=== PATIENT | female | born 1990 | race African-American/Black ===

== ENCOUNTER 2017-02-25 20:25 | Inpatient (IN) ==
[2017-02-25] MEDS ORDERED: LACTATED RINGERS 1,000 ML IV SCH (22:00)
--- NOTE | 2017-02-25 23:20 | Ultrasound Report ---
US OB biophys profile Indication: . Decreased movement. Biophysical profile ultrasound: Single fetus is vertex. Anterior placenta without previa, slightly heterogeneous appearing. MARY JO 165 mm, heart rate 152 BPM. breathing, gross body movements and tone are within normal limits. Impression: 06/25 biophysical profile score. Aged placenta. PROCEDURE INTERPRETED AT [facility] DEPARTMENT OF RADIOLOGY Final Report Signed by: Bright Worley M.D.
[2017-02-26 00:56] LABS: Basophils % 0.1 % (0.0-0.8); Hematocrit 34.8 VOL% (35.7-47.0); Hemoglobin 10.7 GM/DL (12.0-16.0); Immature Granulocytes % 1.4 %; Immature Granulocytes Absolute 0.16 #; Lymphocytes # 1.3 10*3/uL (1.4-4.0); Lymphocytes % 10.7 % (21.3-54.2); Mean Corpuscular HGB Conc 30.7 GM/DL (32-36); Mean Corpuscular Hemoglobin 26 PG (27-34); Mean Corpuscular Volume 85.5 FL (87-102); Monocytes # 0.7 10*3/uL (0.11-0.8); Monocytes % 5.8 % (1.7-12.7); NRBC # 0.03 10*3/uL; Neutrophils # 9.5 10*3/uL (1.4-7.4); Platelet Count 243 T/CUMM (130-400); Red Blood Count 4.07 MC/CUMM (3.8-5.5); Red Cell Distribution Width 17.5 % (9.3-17.3); White Blood Count 11.6 T/CUMM (4-12)
[2017-02-26 01:19] LABS: Albumin 2.4 G/DL (3.4-5.0); Bilirubin,Total 0.4 MG/DL (0.2-1.0); Calcium 8.4 MG/DL (8.5-10.1); Osmolality,Calculated 283.3 MOS/KG (273-304); Potassium 4.3 MMOL/L (3.5-5.1); Total Protein 5.7 G/DL (6.4-8.3)
[2017-02-26] MEDS: LACTATED RINGERS 1,000 ML IV SCH ×3 (02:40→21:00)
[2017-02-26] MEDS ORDERED: FAMOTIDINE 20 MG/2 ML VIAL IV ONE (06:00)
[2017-02-26] MEDS ORDERED: CITRIC ACID/SODIUM CITRATE 30 ML UDCUP PO ONE (06:00)
[2017-02-26] MEDS ORDERED: ceFAZolin 2,000 MG in PREMIX 1 EACH IV ONE (08:00)
[2017-02-26] MEDS ORDERED: OXYTOCIN/LR 30 UNIT/1,000 ML BAG IV ONE (08:05)
[2017-02-26] MEDS ORDERED: OXYTOCIN 10 UNIT/ML VIAL ONE (08:51)
[2017-02-26] MEDS ORDERED: ONDANSETRON 4 MG/2 ML VIAL ONE (09:11)
[2017-02-26] MEDS ORDERED: MIDAZOLAM 2 MG/2 ML VIAL ONE (10:13)
[2017-02-26] MEDS ORDERED: MORPHINE 10 MG/10 ML VIAL ONE (10:13)
--- NOTE | 2017-02-26 10:22 | OB/GYN History & Physical ---
History of Present Illness Chief complaint: Nonreactive NST, at 37+ weeks History of present illness: Ms. Rouse is a 26 year old female 26-year-old 1 para 0 EDC is 429 1737+ weeks gestation. Patient's was complicated by a twin gestation where this patient lost 1 of the twins in the first trimester. She presented this time with decreased movement. The NST was nonreactive. Biophysical profile demonstrated 8 out of 8 however there was significant calcification of the placenta. In light of these findings this patient is prepared for a primary section risks and benefits were thoroughly discussed she is in full agreement. heart tones demonstrated absent acceleration. But a consistent heartbeat of approximately 140s-150. The risks and benefits were discussed with this patient , also discussed with the nursery Home Medications Medication Instructions Recorded Confirmed Type Folic Acid 1 tablet PO DAILY 02/26/17 02/26/17 History No122/Iron/Folic Acid 1 tablet PO DAILY 02/26/17 02/26/17 History [ Multi Tablet] predniSONE TAB [PredniSONE] 1 tablet PO DAILY 02/26/17 02/26/17 History Allergies Allergy/AdvReac Type Severity Reaction Status Date / Time No Known Allergies Allergy Unverified 07/07/16 20:19 Medical,Surgical,& Family Hx - Medical History Neurology: No history of: Seizures HEENT: History of: Eye Problem (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") Reproductive: No history of: Ectopic , Complication - Surgical History Reproductive Surgeries: Patient denies;: Section - Family History Family History: Reports;: Family Anesthesia Reaction (sister from being over sedated), Family Diabetes (mgm), Family Hypertension (mgm) Denies;: Family Cancer, Family Heart Disease, Family Hematology, Family Psychiatric Problems, Family Stroke, Additional Family History - Social History Smoking Status: Never smoker Frequency of Alcohol Use: None Type of Drug Use: None 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 Temp Pulse Resp BP 02/26/17 04:00 97.8 F 81 18 132/70 02/26/17 00:30 98.4 F 96 H 18 124/66 General appearance: no acute distress - Antepartum / Post Antepartum Exam Cervix -Dilatation: Thick and closed - Head Head exam: Present: normal inspection - Eye Eye exam: Present: EOMI Pupils: Present: YONIS - ENT ENT exam: Present: normal exam - Neck Neck exam: Present: normal inspection - Respiratory Respiratory exam: Present: clear to auscultation bilaterally - Breast Breasts: as per HPI Menstruation: as per HPI - Cardiovascular Cardiovascular exam: Present: regular rate and rhythm - GI/Abdominal GI/Abdominal exam: Present: normal bowel sounds - Extremities Exam Extremities exam: Present: normal inspection - Back Exam Back exam: Present: normal inspection - Neurological Exam Neurological exam: Present: alert, oriented X3 - Psychiatric Psychiatric exam: Present: normal affect - Skin Skin exam: Present: normal color Assessment and Plan (1) Non-reactive NST (non-stress test) Status: Acute Assessment and plan: 37+ weeks gestation with a nonreactive NST, aging placenta, and a first trimester twin loss with this particular . Current Visit: Yes Results - Labs CBC & BMP: 02/26/17 00:42 02/26/17 00:42
[2017-02-26] MEDS ORDERED: RHO(D) IMMUNE GLOBULIN 300 MCG SYRINGE IM ONE (10:26)
[2017-02-26] MEDS ORDERED: ONDANSETRON 4 MG/2 ML VIAL IV PRN (10:26)
[2017-02-26] MEDS ORDERED: OXYTOCIN/LR 20 UNIT/1,000 ML BAG IV ONE (10:26)
[2017-02-26] MEDS ORDERED: ACETAMINOPHEN 325 MG TABLET PO PRN (10:26)
--- NOTE | 2017-02-26 10:26 | Operative Note ---
Date of procedure: 02/26/17 Procedure: Preoperative diagnosis: Nonreactive NST, 37+ weeks gestation Postoperative diagnosis: Same Anesthesia:[] Regional anesthesia Estimated blood loss: [] 300 cc Surgeon: Dr. Long Findings: [] Male infant born at 9:38 AM, Apgars were 6 at 1 minute 8 at 5 minutes, weight was 5 lbs. 15 oz., thick tenacious meconium staining Complications: None Procedure: Low transverse section The patient was taken to the operating suite heart tones were obtained prior to and after regional anesthesia was obtained. She was placed in supine position her abdomen was prepped and draped in usual manner for major abdominal surgery. Through an abdominal incision the skin, subcutaneous, fascial layer and peritoneal the abdomen was entered. The bladder flap was created and a low transverse incision was made.. Fluid was pink and meconium-stained and normal amount X, Apgars, the placenta was delivered and sent to lab for further evaluation. Injected with intrauterine Pitocin. The first layer of the uterus was closed with #1 Vicryl in a continuous locking manner. Close to imbricate the first layer with #1 Vicryl. The peritoneum was approximated with #2-0 Vicryl.[] All the last sponges and instruments were accounted for -2.) #2-0 Vicryl. Fascia was approximated with #0-0 Maxon.. The skin was approximated with eula. She tolerated procedure well and was taken to recovery room in stable condition. Surgeon / Physician: Maryse Long Results - Labs CBC & BMP: 02/26/17 00:42 02/26/17 00:42 Discharge Plan - Discharge Medications No Action predniSONE TAB [PredniSONE] 1 tablet PO DAILY No122/Iron/Folic Acid [ Multi Tablet] 1 tablet PO DAILY Folic Acid 1 tablet PO DAILY - Follow Up or Referral - Forms/Instructions
[2017-02-26 10:27] LABS: Apearance,Urine CLEAR (Clear); Bilirubin,Urine Negative (Negative); Blood, Urine Negative (Negative); Glucose,Urine (UA) Negative (Negative); Ketones,Urine Negative (Negative); Mucus,Urine Occasional /LPF (Occasional); Nitrite,Urine Negative (Negative); Protein,Urine Negative; RBC,Urine <1 /HPF (0-4); Urine Color Yellow (Yellow); Urine Urobilinogen < 2.0 EU/DL (0.2-1.0); WBC,Urine <1 /HPF (0-6)
[2017-02-26] MEDS ORDERED: HYDROmorphone 2 MG/1 ML VIAL ONE (14:19)
[2017-02-26] MEDS: HYDROmorphone 2 MG/1 ML VIAL IV PRN ×2 (14:20→22:30)
[2017-02-26] MEDS ORDERED: ACETAMINOPHEN 500 MG TABLET PO PRN (15:56)
[2017-02-26 20:09] LABS: Basophils % 0.1 % (0.0-0.8); Eosinophils % 0.2 % (0.00-10.9); Hematocrit 33.9 VOL% (35.7-47.0); Hemoglobin 10.5 GM/DL (12.0-16.0); Immature Granulocytes % 0.9 %; Immature Granulocytes Absolute 0.09 #; Lymphocytes # 1.9 10*3/uL (1.4-4.0); Lymphocytes % 18.4 % (21.3-54.2); Mean Corpuscular Hemoglobin 26 PG (27-34); Mean Platelet Volume 9.7 FL (9.6-12.0); Monocytes # 0.9 10*3/uL (0.11-0.8); Monocytes % 8.1 % (1.7-12.7); Neutrophils # 7.6 10*3/uL (1.4-7.4); Neutrophils % 72.3 % (38.7-73.9); Platelet Count 216 T/CUMM (130-400); Red Blood Count 3.99 MC/CUMM (3.8-5.5); Red Cell Distribution Width 17.2 % (9.3-17.3); White Blood Count 10.5 T/CUMM (4-12)
[2017-02-26] MEDS: DOCUSATE SODIUM 100 MG CAPSULE PO SCH (23:01)
[2017-02-27] MEDS: LACTATED RINGERS 1,000 ML IV SCH (04:03)
[2017-02-27 04:46] LABS: Basophils % 0.1 % (0.0-0.8); Eosinophils % 0.2 % (0.00-10.9); Hematocrit 33.6 VOL% (35.7-47.0); Hemoglobin 10.3 GM/DL (12.0-16.0); Immature Granulocytes % 0.9 %; Immature Granulocytes Absolute 0.09 #; Lymphocytes # 1.6 10*3/uL (1.4-4.0); Lymphocytes % 16.7 % (21.3-54.2); Mean Corpuscular HGB Conc 30.7 GM/DL (32-36); Mean Corpuscular Hemoglobin 26 PG (27-34); Mean Corpuscular Volume 84.4 FL (87-102); Mean Platelet Volume 9.3 FL (9.6-12.0); Monocytes # 0.9 10*3/uL (0.11-0.8); Monocytes % 9.4 % (1.7-12.7); Neutrophils % 72.7 % (38.7-73.9); Platelet Count 216 T/CUMM (130-400); Red Blood Count 3.98 MC/CUMM (3.8-5.5); Red Cell Distribution Width 17.4 % (9.3-17.3); White Blood Count 9.6 T/CUMM (4-12)
--- NOTE | 2017-02-27 09:29 | Anesthesia ---
Anesthesia Post OP - Post Ansesthetic Evaluation Patient seen in post op: Yes Resp: within normal limits CV: within normal limits Mental: within normal limits Temp: within normal limits [id number]: within normal limits Nausea and Vomiting: within normal limits Pain: within normal limits
[2017-02-27] MEDS: DOCUSATE SODIUM 100 MG CAPSULE PO SCH ×2 (10:23→20:30)
[2017-02-27] MEDS: MULTIVITAMIN (PRENATAL) TABLET PO SCH (10:23)
--- NOTE | 2017-02-27 11:21 | Pathology Report from [facility] ---
ACCESSION # : [id number] PATIENT NAME : Emilio Rouse ORDERING DR : MANINDER COKER MD CLINICAL HX: Primary , 37 weeks IUP POST-OP DX: Same SPECIMEN INFO: Placenta GROSS DESCRIPTION: The specimen is received fresh labeled with the patient's name Emilio Rouse and "PLACENTA" consists of a 327 gram placenta which measures 18.0 x 14.5 x 2.3 cm. The membranes are translucent with meconium staining noted. The umbilical cord measure 18.5 cm, contains three vessels and is eccentrically inserted. The surface is blue song with an area of subchorionic fibrin seen measuring 3.0 x 2.0 cm. The maternal surface displays mildly disrupted hemorrhagic cotyledons with numerous calcifications present. The cut surfaces reveal no gross abnormalities. Sections submitted A- membranes and cord, B- and maternal surfaces. DIAGNOSIS FOR EMILIO ROUSE: Three vessel umbilical cord.Meconium staining of placental membranes.Third trimester placental chorionic villi with scattered microcalcifications and subchorionic fibrin deposition. SERVICE DATE: 02/26/2017 REPORT DATE: 02/27/2017 PATHOLOGIST: Chris Ocampo M.D. MTDD
[2017-02-27] MEDS: guaiFENesin/CODEINE 5 ML LIQUID PO PRN (13:35)
[2017-02-27] MEDS ORDERED: BENZOCAINE/MENTHOL LOZENGE 18/BOX PO PRN (13:48)
[2017-02-27] MEDS ORDERED: AZITHROMYCIN 250 MG TABLET PO ONE (13:52)
[2017-02-27] MEDS: IBUPROFEN 800 MG TABLET PO PRN (16:08)
--- NOTE | 2017-02-27 16:40 | OB/GYN Progress Note ---
Assessment and Plan (1) S/P primary low transverse Status: Acute Assessment and plan: initiate routine postop orders. 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: Vital Signs Temp Pulse Resp BP Pulse Ox 02/27/17 16:08 100.5 F H 02/27/17 16:00 100.5 F H 128 H 20 139/80 97 02/27/17 12:00 98.8 F 106 H 20 120/78 98 02/27/17 09:00 109 H 02/27/17 07:35 99.4 F 128 H 20 121/71 97 02/27/17 04:00 98.8 F 114 H 22 140/85 98 02/27/17 02:00 20 02/26/17 23:40 97.5 F L 107 H 18 136/84 97 02/26/17 19:10 98.1 F 112 H 20 122/77 97 02/26/17 18:00 98.7 F 02/26/17 17:47 98.7 F 02/26/17 17:10 101.1 F H 114 H 20 128/78 99 General appearance: mild distress - Antepartum / Post Post Exam Breast: bilateral: normal Abdomen obstetrics: Present: bowel sounds normal Vagina: Present: normal moisture, discharge (light lochia rubra) Uterus exam: Present: enlarged (FF ML) - Gyencological / Post Surgical Post Surgical Exam Lungs: bilateral: wheezes Chest: Normal S1, Normal S2 Extremities 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: Present: edema Abdomen obstetrics progress note: Present: normal appearance Incision OB: Present: normal, intact - Head Head exam: Present: normal inspection - Respiratory Respiratory exam: Present: wheezes - Cardiovascular Cardiovascular exam: Present: regular rate and rhythm - GI/Abdominal GI/Abdominal exam: Present: normal bowel sounds, soft - Extremities Exam Extremities exam: Present: edema - Neurological Exam Neurological exam: Present: alert, oriented X3 - Psychiatric Psychiatric exam: Present: normal affect, normal mood - Skin Skin exam: Present: normal color, warm Results - Labs CBC & BMP: 02/27/17 04:37 02/26/17 00:42
--- NOTE | 2017-02-27 18:00 | XRay Report ---
XR chest 2V Indication: Coughing and wheezing. Chest 2 views: No comparison. Presumed coexistent with obesity is present with accentuation of underlying lung markings. Mild bibasilar atelectasis noted. No infiltrates. Heart size is upper limits normal. Impression: Mild pulmonary hypoinflation and borderline cardiomegaly. PROCEDURE INTERPRETED AT [facility] DEPARTMENT OF RADIOLOGY Final Report Signed by: Bright Worley M.D.
[2017-02-27] MEDS: MAGNESIUM HYDROXIDE SUSP 30 ML UDCUP PO PRN (20:30)
[2017-02-27] MEDS: SIMETHICONE CHEW 80 MG TABLET PO PRN (20:30)
[2017-02-27] MEDS: ALBUTEROL 2.5 MG/3 ML NEB RESP TX PRN (22:45)
[2017-02-28] MEDS: guaiFENesin/CODEINE 5 ML LIQUID PO PRN ×2 (06:00→14:00)
[2017-02-28] MEDS: MULTIVITAMIN (PRENATAL) TABLET PO SCH (08:48)
[2017-02-28] MEDS: DOCUSATE SODIUM 100 MG CAPSULE PO SCH ×2 (08:48→22:00)
[2017-02-28] MEDS: AZITHROMYCIN 250 MG TABLET PO SCH (08:49)
--- NOTE | 2017-02-28 09:43 | OB/GYN Progress Note ---
Assessment and Plan (1) S/P primary low transverse Status: Acute Assessment and plan: initiate routine postop orders. 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 No SOB at this time. 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: Vital Signs Temp Pulse Pulse Resp BP Pulse Ox 02/28/17 07:27 97.5 F L 102 H 20 119/73 95 02/28/17 04:00 96.2 F L 90 24 113/72 95 02/28/17 02:00 22 02/27/17 23:42 96.9 F L 92 H 20 112/69 96 02/27/17 22:51 80 18 99 02/27/17 22:45 83 18 98 02/27/17 19:30 97 F L 106 H 20 121/74 100 02/27/17 18:30 97.0 F L 106 H 02/27/17 16:08 100.5 F H 02/27/17 16:00 100.5 F H 128 H 20 139/80 97 02/27/17 12:00 98.8 F 106 H 20 120/78 98 General appearance: no acute distress - Antepartum / Post Post Exam Breast: bilateral: normal Abdomen obstetrics: Present: bowel sounds normal Vagina: Present: discharge Uterus exam: Present: enlarged (FF ML) Anus/Rectum: Present: normal perianal skin - Gyencological / Post Surgical Post Surgical Exam Lungs: bilateral: normal Chest: Normal S1, Normal S2 Abdomen obstetrics progress note: Present: normal appearance, soft Incision OB: Present: normal, intact - Respiratory Respiratory exam: Present: clear to auscultation bilaterally - Cardiovascular Cardiovascular exam: Present: regular rate and rhythm - GI/Abdominal GI/Abdominal exam: Present: normal bowel sounds, soft - Extremities Exam Extremities exam: Present: normal inspection - Neurological Exam Neurological exam: Present: alert, oriented X3 - Psychiatric Psychiatric exam: Present: normal affect, normal mood - Skin Skin exam: Present: normal color, warm Results - Labs CBC & BMP: 02/27/17 04:37 02/26/17 00:42
[2017-02-28] MEDS: ALBUTEROL 2.5 MG/3 ML NEB RESP TX PRN (14:00)
[2017-02-28] MEDS: IBUPROFEN 800 MG TABLET PO PRN (16:03)
[2017-02-28] MEDS ORDERED: BISACODYL 10 MG SUPP RECTAL ONE (21:45)
[2017-02-28] MEDS ORDERED: BISACODYL 10 MG SUPP RECTAL PRN (21:46)
[2017-02-28] MEDS: MAGNESIUM HYDROXIDE SUSP 30 ML UDCUP PO PRN (22:00)
[2017-02-28] MEDS: SIMETHICONE CHEW 80 MG TABLET PO PRN (22:00)
[2017-02-28] MEDS: oxyCODONE/ACETAMINOPHEN 5-325 MG TABLET PO PRN (22:00)
[2017-03-01] MEDS: guaiFENesin/CODEINE 5 ML LIQUID PO PRN (08:20)
[2017-03-01] MEDS: DOCUSATE SODIUM 100 MG CAPSULE PO SCH (09:41)
[2017-03-01] MEDS: MULTIVITAMIN (PRENATAL) TABLET PO SCH (09:41)
[2017-03-01] MEDS: AZITHROMYCIN 250 MG TABLET PO SCH (09:42)
[2017-03-01] MEDS: oxyCODONE/ACETAMINOPHEN 5-325 MG TABLET PO PRN (09:43)
[2017-03-01 11:44] VITALS: BP 140/86
--- NOTE | 2017-03-01 12:55 | Discharge Summary ---
Hospital Course - Hospital Course Hospital Course: Routine post op course. Over in the NICU seeing the baby. Per the nurse no complaints Discharge Plan - Discharge Data Disposition: Disch To Home/Self Care Condition at Discharge: Stable Discharge Diet: advance to your usual diet Activity: other (routine post op) Hygiene: may shower Weight Bearing at Discharge: full weight bearing Driving: not for (2 weeks) - Discharge Medications New Docusate Sodium Cap [Colace Cap] 100 mg PO BID #30 capsule Ibuprofen Tab [Motrin Tab] 800 mg PO Q8H PRN #30 tablet PRN Reason: Pain Severe (8-10) oxyCODONE/ACETAMINOPHEN 5-325 [Percocet 5-325] 2 tablet PO Q6H PRN #25 tablet PRN Reason: Pain Moderate (4-7) No Action predniSONE TAB [PredniSONE] 1 tablet PO DAILY No122/Iron/Folic Acid [ Multi Tablet] 1 tablet PO DAILY Folic Acid 1 tablet PO DAILY - Follow Up or Referral - Forms/Instructions Exam - Constitutional Vitals: Period Temp Pulse Resp BP Sys/[place]away Pulse Ox Last 24 Hr 96.5 F-99.3 F 95-120 17-22 117-140/71-86 95-99 DS: Provider Date of admission: 02/25/17 20:25 Primary care physician: . No PCP Attending physician on admission: Maryse Long MD Consults: 02/26/17 00:11 Consult to Anesthesiology [CONS] Routine Consulting Provider: Reason for Anesthesiology: Pre-op Clearance 02/26/17 00:47 Consult to Dietitian [CONS] Routine Reason for Dietitian: Dietary Consult 02/26/17 10:27 Consult to Return To Factory Clerk [CONS] Routine Consult Return To Factory Clerk: Breast Feeding Discharging clinician: Maria Teresa Elliott MD
== END 2017-03-01 15:30 | disposition home or self-care (01) | DRG 766 ==
LOC: N.LD 20:25 → N.LDOUT 20:25 → EDSTATUS 20:25 → N.LD 20:32 → N.LDOUT 02-26 05:11 → N.LD 02-26 05:12 → N.OB 02-26 13:57
PROVIDERS: ADMIT Obstetrics & Gynecology; ATTEND Obstetrics & Gynecology
PROC: LDCSECT (ICD-10-PCS; 2017-02-26 09:00)

== ENCOUNTER 2023-01-14 06:06 | Inpatient (IN) ==
[2023-01-14] MEDS ORDERED: TRANEXAMIC ACID 1,000 MG in SODIUM CHLORIDE 0.9% 100 ML IV PRN (06:55)
[2023-01-14] MEDS ORDERED: miSOPROStoL 200 MCG TABLET RECTAL PRN (06:55)
[2023-01-14] MEDS ORDERED: METHYLERGONOVINE 0.2 MG/1 ML AMP IM PRN (06:55)
[2023-01-14] MEDS ORDERED: OXYTOCIN/LR 20 UNIT/1,000 ML BAG IV ONE ×2 (06:55→10:16)
[2023-01-14] MEDS ORDERED: ONDANSETRON 4 MG/2 ML VIAL IV PRN ×2 (06:55→10:16)
[2023-01-14] MEDS ORDERED: CARBOPROST TROMETHAMINE 250 MCG/ML AMP IM PRN (06:55)
[2023-01-14] MEDS ORDERED: LACTATED RINGERS 1,000 ML IV SCH ×2 (07:00→10:30)
[2023-01-14 07:47] LABS: Basophils % 0.2 % (0.0-0.8); Eosinophils % 0.2 % (0.00-10.9); Hematocrit 34.2 VOL% (35.7-47.0); Hemoglobin 10.3 GM/DL (12.0-16.0); Immature Granulocytes Absolute 0.06 #; Lymphocytes # 1.5 10*3/uL (1.4-4.0); Lymphocytes % 26.4 % (21.3-54.2); Mean Corpuscular HGB Conc 30.1 GM/DL (32-36); Mean Corpuscular Volume 86.4 FL (87-102); Mean Platelet Volume 10.2 FL (9.6-12.0); Monocytes # 0.6 10*3/uL (0.11-0.8); Monocytes % 9.9 % (1.7-12.7); Neutrophils % 62.3 % (38.7-73.9); Platelet Count 202 T/CUMM (130-400); Red Blood Count 3.96 MC/CUMM (3.8-5.5); Red Cell Distribution Width 17.6 % (9.3-17.3); White Blood Count 5.75 T/CUMM (4-12)
[2023-01-14 07:59] LABS: Albumin 2.6 G/DL (3.4-5.0); Bilirubin,Total 0.4 MG/DL (0.20-1.00); Calcium 9.1 MG/DL (8.5-10.1); Potassium 4.1 MMOL/L (3.5-5.1); Total Protein 6.8 G/DL (6.4-8.2)
[2023-01-14] MEDS ORDERED: FAMOTIDINE 20 MG/2 ML VIAL IV ONE (08:13)
[2023-01-14] MEDS ORDERED: CITRIC ACID/SODIUM CITRATE 30 ML UDCUP PO ONE (08:13)
[2023-01-14] MEDS ORDERED: OXYTOCIN/LR 30 UNIT/1,000 ML BAG IV ONE (08:16)
[2023-01-14] MEDS ORDERED: OXYTOCIN 10 UNIT/ML VIAL IM ONE (08:16)
[2023-01-14] MEDS ORDERED: miSOPROStoL 200 MCG TABLET ONE (08:26)
[2023-01-14] MEDS ORDERED: TRANEXAMIC ACID 1,000 MG/10 ML VIAL ONE (08:26)
[2023-01-14] MEDS ORDERED: SODIUM CHLORIDE 0.9% 0 ML IV ONE (08:26)
[2023-01-14] MEDS ORDERED: CARBOPROST TROMETHAMINE 250 MCG/ML AMP IM ONE (08:27)
[2023-01-14] MEDS ORDERED: METHYLERGONOVINE 0.2 MG/1 ML AMP ONE (08:27)
[2023-01-14] MEDS ORDERED: ceFAZolin 2,000 MG/50 ML DUPLEX IV ONE (08:30)
[2023-01-14] MEDS ORDERED: ONDANSETRON 4 MG/2 ML VIAL ONE (08:59)
[2023-01-14] MEDS ORDERED: PHENYLEPHRINE 1 MG/10 ML SYRINGE IV ONE (08:59)
[2023-01-14] MEDS ORDERED: buprenorphine HCL 0.3 MG/ML VIAL ONE (09:00)
[2023-01-14] MEDS ORDERED: KETOROLAC 30 MG/1 ML VIAL ONE (09:43)
[2023-01-14 09:53] LABS: Cord Arterial Blood HCO3 21.8 MMOL/L
[2023-01-14 09:56] LABS: Cord Venous Blood HCO3 21.6 MMOL/L; Cord Venous Blood PCO2 42.6 MMHG; Cord Venous Blood PO2 25.6
[2023-01-14 10:01] LABS: Bacteria,Urine Occasional /HPF (Few); Mucus,Urine Moderate /LPF (Occasional); RBC,Urine <1 /HPF (0-4); Squamous Epithelial Cell,Urine Occasional /HPF (0-10)
[2023-01-14 10:03] LABS: Bilirubin,Urine Negative (Negative); Blood, Urine Negative (Negative); Glucose,Urine (UA) Negative (Negative); Ketones,Urine 80 mg/dL (Negative); Nitrite,Urine Negative (Negative); Protein,Urine Negative (Negative); Urine Appearance Clear (Clear); Urine Color Yellow (Yellow); Urine Specific Gravity > 1.030 (1.001-1.035); Urine Urobilinogen 0.2 eU/dL (<2.0)
[2023-01-14] MEDS ORDERED: IBUPROFEN 800 MG TABLET PO PRN (10:16)
[2023-01-14] MEDS ORDERED: ACETAMINOPHEN 325 MG TABLET PO PRN (10:16)
[2023-01-14] MEDS ORDERED: RHO(D) IMMUNE GLOBULIN 300 MCG SYRINGE IM ONE (10:16)
[2023-01-14 17:53] LABS: Basophils % 0.1 % (0.0-0.8); Eosinophils % 0.3 % (0.00-10.9); Hematocrit 31.2 VOL% (35.7-47.0); Hemoglobin 9.5 GM/DL (12.0-16.0); Immature Granulocytes % 0.7 %; Immature Granulocytes Absolute 0.05 #; Lymphocytes # 1.5 10*3/uL (1.4-4.0); Lymphocytes % 21.2 % (21.3-54.2); Mean Corpuscular HGB Conc 30.4 GM/DL (32-36); Mean Corpuscular Volume 86.9 FL (87-102); Mean Platelet Volume 9.5 FL (9.6-12.0); Monocytes # 0.6 10*3/uL (0.11-0.8); Monocytes % 8.6 % (1.7-12.7); Neutrophils % 69.1 % (38.7-73.9); Platelet Count 171 T/CUMM (130-400); Red Blood Count 3.59 MC/CUMM (3.8-5.5); Red Cell Distribution Width 17.7 % (9.3-17.3); White Blood Count 6.83 T/CUMM (4-12)
[2023-01-14] MEDS: DOCUSATE SODIUM 100 MG CAPSULE PO SCH (21:28)
[2023-01-14] MEDS: ACETAMINOPHEN 500 MG TABLET PO SCH ×2 (21:30→21:45)
[2023-01-14] MEDS: ENOXAPARIN 40 MG/0.4 ML SYRINGE SUBCUT SCH (22:08)
[2023-01-15] MEDS: ACETAMINOPHEN 500 MG TABLET PO SCH (01:06)
[2023-01-15 04:25] LABS: Basophils % 0.1 % (0.0-0.8); Eosinophils % 0.3 % (0.00-10.9); Hemoglobin 8.8 GM/DL (12.0-16.0); Immature Granulocytes % 0.5 %; Immature Granulocytes Absolute 0.04 #; Lymphocytes # 1.5 10*3/uL (1.4-4.0); Lymphocytes % 19.5 % (21.3-54.2); Mean Corpuscular HGB Conc 30.3 GM/DL (32-36); Mean Corpuscular Volume 86.6 FL (87-102); Mean Platelet Volume 9.7 FL (9.6-12.0); Monocytes # 0.7 10*3/uL (0.11-0.8); Monocytes % 9.5 % (1.7-12.7); Neutrophils % 70.1 % (38.7-73.9); Platelet Count 168 T/CUMM (130-400); Red Blood Count 3.35 MC/CUMM (3.8-5.5); Red Cell Distribution Width 17.4 % (9.3-17.3); White Blood Count 7.69 T/CUMM (4-12)
[2023-01-15] MEDS ORDERED: METOCLOPRAMIDE 10 MG TABLET PO SCH (08:00)
[2023-01-15] MEDS ORDERED: METOCLOPRAMIDE 10 MG/2 ML VIAL IV PRN (09:00)
[2023-01-15] MEDS: SIMETHICONE CHEW 80 MG TABLET PO PRN (09:30)
[2023-01-15] MEDS: DOCUSATE SODIUM 100 MG CAPSULE PO SCH ×2 (09:30→21:46)
[2023-01-15] MEDS: MULTIVITAMIN (PRENATAL) TABLET PO SCH (09:30)
[2023-01-15] MEDS: predniSONE 10 MG TABLET PO SCH (09:30)
[2023-01-15] MEDS: MAGNESIUM HYDROXIDE SUSP 30 ML UDCUP PO PRN (09:30)
[2023-01-15] MEDS: METOCLOPRAMIDE 10 MG TABLET PO SCH ×2 (09:30→18:11)
[2023-01-15] MEDS: ENOXAPARIN 40 MG/0.4 ML SYRINGE SUBCUT SCH (21:46)
[2023-01-15 23:33] LABS: Basophils % 0.1 % (0.0-0.8); Eosinophils % 0.1 % (0.00-10.9); Hematocrit 28.9 VOL% (35.7-47.0); Immature Granulocytes % 0.5 %; Immature Granulocytes Absolute 0.05 #; Lymphocytes # 1.2 10*3/uL (1.4-4.0); Mean Corpuscular HGB Conc 31.1 GM/DL (32-36); Mean Corpuscular Volume 85.5 FL (87-102); Mean Platelet Volume 9.6 FL (9.6-12.0); Monocytes # 0.7 10*3/uL (0.11-0.8); Neutrophils % 80.3 % (38.7-73.9); Platelet Count 180 T/CUMM (130-400); Red Blood Count 3.38 MC/CUMM (3.8-5.5); Red Cell Distribution Width 17.5 % (9.3-17.3); White Blood Count 9.58 T/CUMM (4-12)
[2023-01-16] MEDS: METOCLOPRAMIDE 10 MG TABLET PO SCH ×2 (01:23→09:25)
[2023-01-16 07:22] VITALS: BP 110/67
[2023-01-16] MEDS: MAGNESIUM HYDROXIDE SUSP 30 ML UDCUP PO PRN (09:24)
[2023-01-16] MEDS: MULTIVITAMIN (PRENATAL) TABLET PO SCH (09:25)
[2023-01-16] MEDS: DOCUSATE SODIUM 100 MG CAPSULE PO SCH (09:25)
[2023-01-16] MEDS: SIMETHICONE CHEW 80 MG TABLET PO PRN (09:25)
[2023-01-16] MEDS: predniSONE 10 MG TABLET PO SCH (09:36)
[2023-01-16] MEDS ORDERED: DIPH/TET/ACEL PERT BOOSTER VACCINE 0.5 ML VIAL IM ONE (10:13)
== END 2023-01-16 12:45 | disposition home or self-care (01) | DRG 539 ==
LOC: N.LD 06:06 → N.OB 12:53
PROVIDERS: ADMIT Obstetrics & Gynecology; ATTEND Obstetrics & Gynecology